=== PATIENT | male | born 1965 ===

== ENCOUNTER 2018-10-07 18:50 | Inpatient (IN) | payer OTHER ==
--- NOTE | 2018-10-07 20:48 | C.PDOC ---
History Of Present Illness 53 year old male presents to the ED requesting detox for alcohol abuse. Patient reports he drink 3 quarts of Vodka everyday. Patient states his last drink was a few hours [employer]. Patient denies SI/HI, hallucinations, CP, SOB, injury, fall, trauma. Time Seen by Provider: 10/07/18 20:48 Chief Complaint (Nursing): Substance Abuse History Per: Patient History/Exam Limitations: intoxication Onset/Duration Of Symptoms: Hrs Current Symptoms Are (Timing): Still Present Suicide/Self Injury Attempted (Context): None Modifying Factor(s): Alcohol Associated Symptoms: denies: Depression, Suicidal Thoughts, Suicidal Plan Recent travel outside of the [place]: No Additional History Per: Patient Past Medical History Reviewed: Historical Data, Nursing Documentation, Vital Signs Vital Signs: Last Vital Signs Temp 97.8 F 10/07/18 19:51 Pulse 82 10/07/18 19:51 Resp 20 10/07/18 19:51 BP 123/78 10/07/18 19:51 Pulse Ox 96 10/07/18 19:51 - Medical History PMH: No Chronic Diseases Surgical History: No Surg Hx Family History: States: Unknown Family Hx - Social History Hx Alcohol Use: Yes Hx Substance Use: No - Immunization History Hx Tetanus Toxoid Vaccination: No Hx Influenza Vaccination: No Hx Pneumococcal Vaccination: No Review Of Systems Constitutional: Negative for: Fever, Chills Cardiovascular: Negative for: Chest Pain Respiratory: Negative for: Shortness of Breath Gastrointestinal: Negative for: Nausea, Vomiting, Abdominal Pain Skin: Negative for: Rash Psych: Negative for: Depression, Suicidal ideation Physical Exam - Physical Exam Appears: Non-toxic, No Acute Distress Skin: Warm, Dry Head: Normacephalic Eye(s): bilateral: Normal Inspection Neck: Supple Chest: Symmetrical Cardiovascular: Rhythm Regular Respiratory: No Rales, No Rhonchi, No Wheezing Gastrointestinal/Abdominal: Soft, No Tenderness, No Guarding, No Rebound Extremity: Bilateral: Atraumatic, Normal Color And Temperature, Normal ROM Neurological/Psych: Oriented x3, Normal Speech, Normal Cognition Gait: Steady ED Course And Treatment - Laboratory Results Result Diagrams: 10/07/18 21:24 10/07/18 21:24 O2 Sat by Pulse Oximetry: 96 (ON RA) Pulse Ox Interpretation: Normal Progress Note: Plan: - Labs. - UA. - Crisis eval Disposition Discussed With : Jam Mendez Comment: accepted the pt on his service and took over the care at 11:07 PM Doctor Will See Patient In The: Hospital Counseled Patient/Family Regarding: Studies Performed, Diagnosis - Disposition Disposition: HOSPITALIZED Disposition Time: 20:48 Condition: FAIR Forms: [facility] (Colombian) - POA Present On Arrival: None - Clinical Impression Clinical Impression: Alcohol use disorder - Scribe Statement The provider has reviewed the documentation as recorded by the Scribe Luis Rangel All medical record entries made by the Scribe were at my direction and personally dictated by me. I have reviewed the chart and agree that the record accurately reflects my personal performance of the history, physical exam, medical decision making, and the department course for this patient. I have also personally directed, reviewed, and agree with the discharge instructions and disposition. Decision To Admit - Pt Status Changed To: Hospital Disposition Of: Inpatient - Admit Certification Admit to Inpatient:: After my assessment, the patient will require hospitalization for at least two midnights. This is because of the severity of symptoms shown, intensity of services needed, and/or the medical risk in this patient being treated as an outpatient. - InPatient: Physician Admission Certification: I certify that this patient requires 2 or more midnights of care for the following reason:: After my assessment, the patient will require hospitalization for at least two midnights. This is b ecause of the severity of symptoms shown, intensity of services needed, and/or the medical risk in this patient being treated as an outpatient. - . Bed Request Type: Detox Admitting Physician: Jam Mendez Patient Diagnosis: Alcohol use disorder
[2018-10-07 21:30] LABS: BASO % 1.1 % (0.0-2.0); EOS # 0.1 K/uL (0.0-0.7); EOS % 2.9 % (0.0-4.0); HEMOGLOBIN 10.2 g/dL (12.0-18.0); LYMPH # 1.1 K/uL (1.0-4.3); LYMPH % 30.8 % (20.0-40.0); MEAN CELL VOLUME 75.9 fL (80.0-94.0); MEAN CORPUSCULAR HEMOGLOBIN 23.3 pg (27.0-31.0); MEAN CORPUSCULAR HGB CONC 30.6 g/dL (33.0-37.0); MEAN PLATELET VOLUME 8.5 fL (7.2-11.7); MONO # 0.3 K/uL (0.0-0.8); MONO % 8.8 % (0.0-10.0); NEUT % 56.4 % (50.0-75.0); NRBC % 0.1 % (0.0-2.0); RBC 4.37 Mil/uL (4.40-5.90); RED CELL DISTRIBUTION WIDTH 21.2 % (11.5-14.5); WHITE BLOOD COUNT 3.6 K/uL (4.8-10.8)
[2018-10-07 21:43] LABS: ALB/GLOB RATIO 1.1 (1.0-2.1); ALBUMIN 4.4 g/dL (3.5-5.0); ALT/SGPT 21 U/L (21-72); AST/SGOT 62 U/L (17-59); BLOOD UREA NITROGEN 9 mg/dL (9-20); CALCIUM 8.4 mg/dl (8.6-10.4); GFR NON-AFRICAN AMERICAN > 60
[2018-10-07 22:25] LABS: URINE BILIRUBIN NEGATIVE (NEGATIVE); URINE BLOOD NEGATIVE (NEGATIVE); URINE CLARITY Clear (Clear); URINE COLOR Yellow (YELLOW); URINE GLUCOSE (UA) NORMAL (Normal); URINE LEUKOCYTE ESTERASE NEG Leu/uL (Negative); URINE PROTEIN NEGATIVE (NEGATIVE)
[2018-10-07 22:42] LABS: BARBITURATES, UR NEGATIVE (NEGATIVE); BENZODIAZEPINES, UR NEGATIVE (NEGATIVE); OPIATES, UR NEGATIVE (NEGATIVE); PHENCYCLIDINE, UR NEGATIVE (NEGATIVE)
--- NOTE | 2018-10-08 01:21 | PCM.BM ---
<Blayne Wellington - Last Filed: 10/08/18 01:24> Treatment Plan Problems - Problems identified on initial assessmt anxiety r/t substance abuse Date Initiated: 10/08/18 Time Initiated: :19 Assessment reference: NA Status: Active Problem 2 denial Date Initiated: 10/08/18 Time Initiated: 01:20 Assessment reference: NA Status: Active defensive coping Date Initiated: 10/08/18 Time Initiated: 01:21 Assessment reference: NA Status: Active knowledge deficit alcohol use Date Initiated: 10/08/18 Time Initiated: 01:24 Assessment reference: NA Status: Active Treatment assets and liabiliti Patient Assests: adapts well, cooperative, cognitively intact Patient Liabilities: substance abuse - Milieu Protocol Maintain good personal hygiene: daily Encourage regular showers, daily Remind p atient to perform daily oral care, daily Assist patient to perform ADL's Conduct patient checks and document Observation sheet: Q15 minutes Maintain personal safety: every shift Educate patient to report safety concerns to staff, every shift Monitor environment for contraband/sharps Medication safety: Monitor for expected outcome, potential side effects: every shift, Assess barriers to learning: every shift, Assess readiness for medication education: every shift <Jam Mendez - Last Filed: 10/08/18 19:56> - Diagnosis (1) Alcohol use disorder, severe, dependence Status: Acute Interventions: 10/08/18 19:55 Assess 7x/week regarding severity of withdrawal Educate regarding risks, benefits, side effects and alternatives of medications Use Motivational Interviewing for abstinence Use CBT for relapse prevention Medication management for withdrawal symptoms Encourage medication assisted treatment (2) Cannabis use disorder, severe, dependence Status: Acute Interventions: 10/08/18 19:55 Assess 7x/week regarding severity of withdrawal Educate regarding risks, benefits, side effects and alternatives of medications Use Motivational Interviewing for abstinence Use CBT for relapse prevention Medication management for withdrawal symptoms Encourage medication assisted treatment
[2018-10-08] MEDS: Multiple Vitamins Tab PO SCH (09:02)
--- NOTE | 2018-10-08 20:03 | PCM.PSYCH ---
Initial Psychiatric Evaluation - Initial Psychiatric Evaluation Type of Admission: Voluntary Legal Status: Capacity Chief Complaint (in patient's own words): I need help for my alcohol use. History of Present Illness and Precipitating Events: Patient is a 53 years old, single, unemployed, male with history of anxiety disorder and depression, was admitted due to withdrawing from alcohol. Alcohol: Patient started drinking alcohol at 40 years of age, was drinking heavily, 4 points daily. His last drink was yesterday. His longest period of abstinence was 52 days until 2 weeks ago, relapsed again 2 weeks ago. Patient was admitted at [facility] secondary to esophageal varices bleeding and got treatment including banding. After discharge patient again started drinking alcohol. Cannabis: Patient was also using cannabis unspecified amount. Last used 3 weeks ago. Patient reported history of anxiety disorder and depression since 2002, was seeing a psychiatrist since then until 1 month ago. According to patient he was taking Remeron, Seroquel, trazodone and Xanax 2 mg 4 times a day. According to patient he was taking these medications until 1 month ago when he stopped going to see psychiatrist as he is in the process of finding another psychiatrist. Cigarettes: He smokes 1 pack of cigarettes daily and is "requesting for nicotine patch. Patient was born in [place], moved to [place] at 1 month of age with family. Has high school graduation. Not working for last 2 years. Was driving trucks. Currently on SSD. Patient is single and has 124 years old daughter. His height is 5 feet 10 inches and weight is 200 pounds. Current Medications: Active Medications Generic Name Dose Route Start Last Admin Trade Name Freq PRN Reason Stop Dose Admin Chlordiazepoxide 25 mg 10/08/18 06:00 10/08/18 18:01 Librium PO 10/12/18 05:59 25 mg Q6 DUSTIN Administration Taper Chlordiazepoxide 25 mg 10/08/18 00:34 10/08/18 08:17 Librium PO 25 mg Q4H PRN Administration Alcohol Withdrawal Clonidine HCl 0.1 mg 10/08/18 00:34 10/08/18 02:03 Catapres PO 0.1 mg Q4H PRN Administration Symptoms of alcohol withdrawl Folic Acid 1 mg 10/08/18 10:00 10/08/18 09:02 Folic Acid PO 1 mg DAILY DUSTIN Administration Gabapentin 400 mg 10/08/18 10:00 10/08/18 18:02 Neurontin PO 400 mg TID DUSTIN Administration Hydroxyzine HCl 25 mg 10/08/18 16:52 Atarax PO Q6 PRN Anxiety Ibuprofen 400 mg 10/08/18 00:36 Motrin Tab PO Q6 PRN Pain, moderate (4-7) Mirtazapine 15 mg 10/08/18 22:00 Remeron PO HS DUSTIN Multivitamins 1 tab 10/08/18 10:00 10/08/18 09:02 Hexavitamin PO 1 tab DAILY DUSTIN Administration Nicotine 1 patch 10/08/18 10:00 10/08/18 09:02 Nicoderm Cq TD 1 patch DAILY DUSTIN Administration Thiamine HCl 100 mg 10/08/18 10:00 10/08/18 09:02 Vitamin B1 Tab PO 100 mg DAILY DUSTIN Administration Trazodone HCl 100 mg 10/08/18 12:27 Desyrel PO HS PRN Insomnia Past Psychiatric History - Past Psychiatric History Previous Treatment History: Inpatient Prior Psychiatric Treatment: Patient has history of 3 detox and to rehabs. History of Abuse: None reported History of ETOH/Drug Use: See HPI History of Family Illness: None reported Pertinent Medical Hx (Current Medical&Sleep Prob, Allergies): Allergies Allergy/AdvReac Type Severity Reaction Status Date / Time No Known Allergies Allergy Verified 10/07/18 19:59 No Known Home Med 10/07/18 Esophageal varices/portal hypertension Review of Systems - Psychiatric Psychiatric: As Per HPI, Anxiety, Depression Mental Status Examination - Personal Presentation Personal Presentation: Looks stated age - Affect Affect: Depressed - Motor Activity Motor Activity: Calm - Reliability in Providing Information Reliability in Providing Information: Fair - Speech Speech: Organized - Mood Mood: Depressed - Formal Thought Process Formal Thought Process: No Impairment - Hallucinations/Delusions Hallucinations: Other (None report) Delusions: Other - Obsessions/Compulsions Obsessions: None Compulsions: None - Cognitive Functions Orientation: Person, Place, Situation, Time Sensorium: Alert Attention/Concentration: Attentive Abstract Thinking: [place] Estimate of Intelligence: Average Judgement: Intact, as evidence by: Insight regarding need for hospitalization Memory: Recent intact, as evidence by: Ability to recall events of the day, Remote intact, as evidenced by: Ability to recall historical events - Risk Risk: Withdrawal, Diminished functioning - Strength & Assets Inventory Strength & Assets Inventory: Cooperative - Limitations Limitations: Living alone DSM 5 DX - DSM 5 DSM 5 Diagnosis: Alcohol withdrawal. Alcohol use disorder severe. Cannabis use disorder severe - Recommended/Plan of Treatment Treatment Recommendations and Plan of Treatment: Patient education. Supportive therapy. CBT for relapse prevention. [place] for abstinence. Will start Librium taper for alcohol withdrawal symptoms. Other PRN medication. Nicotine patch for alcohol withdrawal symptoms. Patient [facility] to go to [facility] follow-up care after discharge from the hospital. Projected ELOS: 4-5 days - Smoking Cessation Smoking Cessation Initiated: Yes
[2018-10-09] MEDS: Multiple Vitamins Tab PO SCH (09:12)
[2018-10-10] MEDS: Multiple Vitamins Tab PO SCH (09:19)
[2018-10-10 10:07] VITALS: RESP 18
--- NOTE | 2018-10-10 13:54 | PCM.PYCHPN ---
Psychiatric Progress Note - Psychiatric Progress Note Patient seen today, length of contact: 19 min Patient Chief Complaint: "I'm very anxious" Problems Identified/Issues Discussed: The pt is seen, chart reviewed, case discussed with staff. The pt is compliant with medications and reports no side-effects. Symptoms are improving but needs more time to stabilize. Anxiety management discussed, psychotherapy started Pt attends groups and activities. Support given, psycho-education provided. After care discussed. Medication Change: Yes (detox changes daily) Medical Record Reviewed: Yes Mental Status Examination - Cognitive Function Orientation: Person, Place, Situation, Time Memory: Intact Attention: WNL Concentration: Poor Association: WNL Fund of Knowledge: WNL - Mood Mood: Depressed, Anxious - Affect Affect: Constricted, Depressed - Speech Speech: Appropriate - Formal Thought Process Formal Thought Process: No Impairment - Suicidal Ideation Suicidal Ideation: No - Homicidal Ideation Homicidal Ideation: No Goal/Treatment Plan - Goal/Treatment Plan Need for Continued Stay: Discharge may exacerbated symptoms, Severe functional impairment Progress Toward Problem(s) and Goals/Treatment Plan: Continue medications Support and psychoeducation daily Attend groups and activities daily After care planning by counselors Add meds for anxiety
[2018-10-10 14:16] LABS: BASO % 0.6 % (0.0-2.0); EOS # 0.1 K/uL (0.0-0.7); HEMOGLOBIN 9.6 g/dL (12.0-18.0); NEUT # 1.3 K/uL (1.8-7.0); RED CELL DISTRIBUTION WIDTH 20.9 % (11.5-14.5)
[2018-10-10 14:28] LABS: EOS % 3.7 % (0.0-4.0); LYMPH # 0.6 K/uL (1.0-4.3); LYMPH % 23.8 % (20.0-40.0); MEAN CELL VOLUME 76.7 fL (80.0-94.0); MEAN CORPUSCULAR HEMOGLOBIN 23.5 pg (27.0-31.0); MEAN CORPUSCULAR HGB CONC 30.7 g/dL (33.0-37.0); MEAN PLATELET VOLUME 8.6 fL (7.2-11.7); MONO # 0.3 K/uL (0.0-0.8); MONO % 14.5 % (0.0-10.0); NEUT % 57.4 % (50.0-75.0); NRBC % 0.2 % (0.0-2.0); RBC 4.07 Mil/uL (4.40-5.90)
[2018-10-10 14:29] LABS: WHITE BLOOD COUNT 2.3 K/uL (4.8-10.8)
[2018-10-10 14:38] LABS: ALBUMIN 3.9 g/dL (3.5-5.0); ALT/SGPT 24 U/L (21-72); AST/SGOT 54 U/L (17-59); BLOOD UREA NITROGEN 11 mg/dL (9-20); CALCIUM 8.8 mg/dl (8.6-10.4); GFR NON-AFRICAN AMERICAN > 60
--- NOTE | 2018-10-11 08:49 | PCM.PYCHDC ---
Mental Status Examination - Mental Status Examination Orientation: Person Discharge Summary - Discharge Note Laboratory Data: Abnormal Lab Results 10/10/18 10/10/18 14:13 14:13 WBC 2.3 L RBC 4.07 L Hgb 9.6 L Hct 31.2 L MCV 76.7 L MCH 23.5 L MCHC 30.7 L RDW 20.9 H Plt Count 43 L D MPV 8.6 Neut % (Auto) 57.4 Lymph % (Auto) 23.8 [place] % (Auto) 14.5 H Eos % (Auto) 3.7 Baso % (Auto) 0.6 Neut # (Auto) 1.3 L Lymph # (Auto) 0.6 L [place] # (Auto) 0.3 Eos # (Auto) 0.1 Baso # (Auto) 0.0 Differential Comment Sodium 139 Potassium 4.4 Chloride 108 H Carbon Dioxide 25 Anion Gap 11 BUN 11 Creatinine 0.6 L Est GFR ( Amer) > 60 Est GFR (Non-Af Amer) > 60 Random Glucose 147 H D Calcium 8.8 Magnesium 1.7 Total Bilirubin 0.9 AST 54 ALT 24 Alkaline Phosphatase 193 H Total Protein 7.7 Albumin 3.9 Globulin 3.8 Albumin/Globulin Ratio 1.0 TSH 3rd Generation 1.68 Consultations:: List each consultation separately and include: 1. Reason for request. 2. Findings. 3. Follow-up Summary of Hospital Course include:: 1. Description of specific treatment plan utilized for patients during their course of treatmen. 2. Summarize the time- course for resolution of acute symptoms and/or regressed behaviors. 3. Describe issues identified and worked on during hospitalization. 4. Describe medication utilized. 5. Describe medical problems identified and treated. 6. Reassessment of suicide risk Summary of Hospital Course: He will go to [facility] - Final Diagnosis (DSM 5) Condition upon Discharge: FAIR Disposition: HOME/ ROUTINE Follow-up Treatment Plan: Continue medications Support and psychoeducation daily Attend groups and activities daily After care planning by counselors Add meds for anxiety Prescriptions/Medication Reconciliation: Gabapentin [Neurontin] 400 mg PO TID #90 cap Mirtazapine [Remeron] 15 mg PO HS #30 tab Propranolol [Inderal] 20 mg PO BID #60 tab QUEtiapine [SEROquel] 50 mg PO HS #30 tab traZODone [Desyrel] 100 mg PO HS PRN #30 tab PRN Reason: Insomnia
[2018-10-11] MEDS: Multiple Vitamins Tab PO SCH (09:13)
[2018-10-11 11:08] VITALS: BP 118/88; PULSE 90; TEMP 97.9; O2SAT 97
== END 2018-10-11 11:05 | disposition home or self-care (01) | DRG 896 ==
LOC: C.ER 18:50 → C.7D 23:05
PROC: GZHZZZZ Group Psychotherapy (ICD-10-PCS; principal; 2018-10-07)
PROC: GZ56ZZZ Individual Psychotherapy, Supportive (ICD-10-PCS; 2018-10-07)
DX: F10.230 Alcohol dependence with withdrawal, uncomplicated (principal); I85.01 Esophageal varices with bleeding; Y90.8 Blood alcohol level of 240 mg/100 ml or more; F12.20 Cannabis dependence, uncomplicated; F17.210 Nicotine dependence, cigarettes, uncomplicated; F41.9 Anxiety disorder, unspecified